=== PATIENT | male | born 1960 | race African-American/Black ===

== ENCOUNTER 2020-09-22 17:37 | Emergency (ER) | payer MEDICAID ==
[~2020-09-22] VITALS: Ht 200.7 cm; Wt 117.4 kg
[2020-09-22 18:40] LABS: ALBUMIN 3.6 g/dL (3.4-5.0); ANION GAP 8 mmol/L (5-15); CALCIUM 8.5 mg/dL (8.5-10.1); CHLORIDE 110 mmol/L (98-107); CREATININE 1.34 mg/dL (0.7-1.3)
[2020-09-22 18:43] LABS: BASOPHILS % (AUTO) 1 % (0-1); EOSINOPHILS % (AUTO) 1 % (1-7); LYMPHOCYTES % (AUTO) 22 % (22-44); MEAN CORPUSCULAR HEMOGLOBIN 28.7 pg (27.5-34.5); MEAN CORPUSCULAR HGB CONC 33.5 g/dL (33.2-36.2); MEAN PLATELET VOLUME 8.5 fL (7.4-10.4); MONOCYTES % (AUTO) 8 % (2-9); NEUTROPHILS % (AUTO) 69 % (42-75); PLATELET COUNT 225 x10^3/uL (130-400); RED BLOOD COUNT 4.99 x10^6/uL (4.38-5.82); RED CELL DISTRIBUTION WIDTH 14.5 % (9.4-14.8)
[2020-09-22 18:48] LABS: MD NO
[2020-09-22 19:41] LABS: MICROSCOPIC AUTO
[2020-09-22] MEDS ORDERED: AZITHROMYCIN 500 MG TABLET ONE (20:17)
[2020-09-22] MEDS ORDERED: CEFTRIAXONE 250 MG ONE (20:18)
[2020-09-22] MEDS ORDERED: CEFTRIAXONE 250 MG IM ONE (20:30)
[2020-09-22] MEDS ORDERED: AZITHROMYCIN 500 MG TABLET PO ONE (20:30)
[2020-09-22 20:46] VITALS: BP 155/105
== END 2020-09-22 21:01 | disposition home or self-care (01) ==
LOC: ED 20:54
DX: N34.1 Nonspecific urethritis (principal)
CPT/HCPCS: 36415; 80048; 81001; 82040; 85025; 87086; 87491; 87591; 96372; 99283; J0696; 87077

== ENCOUNTER 2020-10-29 06:22 | Emergency (ER) | payer SELFPAY ==
[~2020-10-29] VITALS: Ht 200.7 cm; Wt 119.0 kg
[2020-10-29 06:24] VITALS: BP 118/88
--- NOTE | 2020-10-29 06:35 | NUR ---
pt ambulated to room 22, no acute distress. annoyed he has to change into a gown for the doctor to evaluate him.
--- NOTE | 2020-10-29 06:55 | NUR ---
report and care to day shift RN
[2020-10-29] MEDS ORDERED: CEFTRIAXONE 250 MG IM ONE (07:00)
[2020-10-29] MEDS ORDERED: AZITHROMYCIN 500 MG TABLET PO ONE (07:00)
[2020-10-29] MEDS ORDERED: CEFTRIAXONE 250 MG ONE (07:10)
[2020-10-29] MEDS ORDERED: AZITHROMYCIN 250 MG TABLET ONE (07:10)
--- NOTE | 2020-10-29 07:17 | NUR ---
Report recieved from Derek RN, pt resting in bed, medicated as ordered, & discharge instructions reviewed.
== END 2020-10-29 07:45 | disposition home or self-care (01) ==
LOC: ED 07:20
DX: N34.2 Other urethritis (principal)
CPT/HCPCS: 87491; 87591; 96372; 99283; J0696

== ENCOUNTER 2021-05-08 23:32 | Emergency (ER) | payer SELFPAY ==
[~2021-05-08] VITALS: Ht 200.7 cm; Wt 118.1 kg
[2021-05-08] MEDS ORDERED: DOXYCYCLINE 100MG TABLET ONE (23:50)
[2021-05-08] MEDS ORDERED: LIDOCAINE-MPF 1%, 5ML ONE (23:52)
[2021-05-08] MEDS ORDERED: CEFTRIAXONE 1,000 MG ONE (23:52)
[2021-05-09] MEDS ORDERED: DOXYCYCLINE 100MG TABLET PO ONE
[2021-05-09] MEDS ORDERED: CEFTRIAXONE 500 MG in DEXTROSE 5% 50 ML IV SCH
[2021-05-09 00:26] VITALS: BP 125/84
[2021-05-09] MEDS ORDERED: CEFTRIAXONE 1,000 MG IM ONE (00:30)
== END 2021-05-09 00:40 | disposition home or self-care (01) ==
LOC: ED 23:40
DX: N34.1 Nonspecific urethritis (principal)
CPT/HCPCS: 87491; 87591; 96372; 99283; J0696